=== PATIENT | female | born 1990 | race Caucasian/White ===

== ENCOUNTER 2017-04-13 19:36 | Inpatient (IN) | payer BC ==
[~2017-04-13] VITALS: Ht 185.4 cm; Wt 85.9 kg
[2017-04-13 19:45] VITALS: BP 129/79; PULSE 103; TEMP 97.9
[2017-04-13 20:30] VITALS: BP 112/66; PULSE 96
[2017-04-13 20:37] LABS: MEAN CELL VOLUME 97 fl (80.0-100.0); MEAN CORPUSCULAR HGB CONC 33 g/dl (33.0-37.0); MEAN PLATELET VOLUME 10.5 fl (7.4-10.4); PLATELET COUNT 165 K/mm3 (130-400); RED BLOOD COUNT 3.68 M/mm3 (4.10-5.30); REDCELL DISTRIBUTION WIDTH-CV 13.7 % (11.5-14.5)
[2017-04-13 20:39] LABS: HEMATOCRIT 35.6 % (37.0-47.0); HEMOGLOBIN 11.9 g/dl (12.5-16.0); MEAN CORPUSCULAR HEMOGLOBIN 32 pg (27.0-31.0)
[2017-04-13 20:44] VITALS: BP 112/59; PULSE 98; TEMP 98.1
[2017-04-13] MEDS ORDERED: PRENATAL MVI (20:48)
[2017-04-13 21:00] VITALS: BP 125/58; PULSE 107; TEMP 98.4
[2017-04-13 21:11] LABS: BAND 19 % (0-10); LYMPHOCYTE 8 % (20.0-51.0); METAMYELOCYTE 1 % (0-0); NEUTROPHILS 66 % (42.0-75.2); PLATELET ESTIMATE NORMAL (NORMAL)
[2017-04-13 22:00] VITALS: BP 126/63; PULSE 94
[2017-04-13 22:30] VITALS: BP 116/63; PULSE 85
[2017-04-14] VITALS (43 sets, daily range): BP systolic 96–128; BP diastolic 51–75; PULSE 72–126; TEMP 97.4–99.4
[2017-04-14] MEDS ORDERED: PERCOCET 325 MG1 TA2 PO (08:42)
[2017-04-14] MEDS ORDERED: MOTRIN 800800 MG/TAB PO (08:42)
[2017-04-15 01:15] VITALS: BP 92/56; PULSE 91; TEMP 97.4
[2017-04-15 08:30] VITALS: BP 106/65; PULSE 87; TEMP 97.5
[2017-04-15 16:10] VITALS: BP 98/55; PULSE 84; TEMP 98.6
[2017-04-15 21:00] VITALS: BP 110/72; PULSE 79; TEMP 98.1
[2017-04-16 09:00] VITALS: BP 115/70; PULSE 92; TEMP 97.8
== END 2017-04-16 11:10 | disposition home or self-care (01) | DRG 775 ==
LOC: LDRO 19:36 → LDR 19:50 → OB 19:50
PROVIDERS: Obstetrics & Gynecology
PROC: 10E0XZZ Delivery of Products of Conception, External Approach (ICD-10-PCS; principal; 2017-04-14)
PROC: 0KQM0ZZ Repair Perineum Muscle, Open Approach (ICD-10-PCS; 2017-04-14)
DX: O69.81X0 Labor and delivery complicated by cord around neck, without compression, not applicable or unspecified (principal); O70.1 Second degree perineal laceration during delivery; Z3A.37 37 weeks gestation of pregnancy; Z37.0 Single live birth
CPT/HCPCS: J2590; J2795; J7120

== ENCOUNTER 2019-11-07 08:48 | Inpatient (IN) | payer BC ==
[~2019-11-07] VITALS: Ht 180.3 cm; Wt 90.0 kg
[2019-11-07] VITALS (15 sets, daily range): BP systolic 105–134; BP diastolic 51–86; PULSE 73–108; TEMP 98–98.5
[~2019-11-07 08:48] MED LIST: MOTRIN 800800 MG/TAB PO; PERCOCET 325 MG1 TA2 PO; PRENATAL MVI
--- NOTE | 2019-11-07 08:50 | NUR ---
Patient arrives ambulatory with spouse with complaints of contractions that started around 0300 today and have intensified. Patient denies ROM or vaginal bleeding, reports normal movement. Changes into gown, EFM explained and placed. 0855- SVE per Sharon Rizo RN with membranes intact. Patient updated on plan of care. Requests epidural if possible. 857- on unit and notified of patient arrival, SVE, history and FHR strip. Orders to admit and patient may have epidural if possible. GBS positive protocol. Physician remains on unit. Yocasta Boston CRNA notified and in transit. 904- IV Started in LW by Sharon Rizo RN, labs obtained and LR infusing. Gaurav infusing, see EMAR. Consents explained and signed. Assessment completed. 912- Yocasta Boston CRNA at bedside. Patient assisted to sit on edge of bed. 918- Single shot via epidural by Yocasta Boston CRNA. Patient tolerates well no adverse reactions noted. See anesthesia record. 921- Patient repositioned WL and updated on plan of care. 924- at bedside. Discussing plan of care, patient agrees to AROM option. SVE per provider , AROM by Dr. Alejandre for small amoutn of clear fluid. SVE unchanged. Pericare given, physician remains on unit
[2019-11-07 09:30] LABS: HEMATOCRIT 40.1 % (37.0-47.0); HEMOGLOBIN 13.8 g/dl (12.5-16.0); MEAN CELL VOLUME 96 fl (80.0-100.0); MEAN CORPUSCULAR HEMOGLOBIN 33 pg (27.0-31.0); MEAN CORPUSCULAR HGB CONC 34 g/dl (33.0-37.0); MEAN PLATELET VOLUME 10.1 fl (7.4-10.4); PLATELET COUNT 165 K/mm3 (130-400); RED BLOOD COUNT 4.17 M/mm3 (4.10-5.30); REDCELL DISTRIBUTION WIDTH-CV 13.9 % (11.5-14.5)
--- NOTE | 2019-11-07 09:59 | NUR ---
0959- at bedside. SVE 102. Patient prepped for delivery. Nursery RN to bedside. Assisted to footplates. 1005- Patient begins pushing with contractions with physician at bedside. Moves vertex well. 1006- of viable female infant attended by Dr. Alejandre. to mothers abdomen, care of to Alexi Arriola RN. Apgars 9//9. 1013- Spont. delivery of placenta. Pitocin bolus infusing at 333ml/hr/protocol. Fundus firm at umbilicus. First degree perineal laceration repaied by physician. Patient toelrates well. Vaginal bleeding WNL. Pericare given and ice pack applied. Patient updated on plan of care and safety.
[2019-11-07 11:09] LABS: BAND 30 % (0-10); LYMPHOCYTE 13 % (20.0-51.0); NEUTROPHILS 51 % (42.0-75.2); PLATELET ESTIMATE NORMAL (NORMAL)
--- NOTE | 2019-11-07 11:21 | NUR ---
Patient explained and offered COVID-19 test. Patient refuses.
[2019-11-07] MEDS ORDERED: MOTRIN 800800 MG/TAB PO (21:03)
[2019-11-08 00:34] VITALS: BP 95/62; PULSE 77; TEMP 97.8
[2019-11-08 05:10] VITALS: BP 113/76; PULSE 79; TEMP 97.8
--- NOTE | 2019-11-08 06:39 | NUR ---
REPORT RECEIVED FROM OFF GOING RN, DOROTA Foster CARE TAKEN OVER BY THIS RN.
[2019-11-08 07:02] VITALS: BP 120/63; PULSE 80; TEMP 98.2
[2019-11-08 09:01] VITALS: BP 107/68; PULSE 89; TEMP 97.9
--- NOTE | 2019-11-08 09:01 | NUR ---
Initial visit; Parents thanked [employer] for offering congratulations and God's blessings for the of their son. Senior [employer] Developer thanked family for choosing [facility].
[2019-11-08 17:19] VITALS: BP 115/72; PULSE 77; TEMP 98
[2019-11-08 20:40] VITALS: BP 116/66; PULSE 77; TEMP 98.3
[2019-11-09 09:36] VITALS: BP 119/76; PULSE 94
== END 2019-11-09 09:50 | disposition home or self-care (01) | DRG 807 ==
LOC: LDRO 08:48 → LDR 09:00 → OB 15:05
PROVIDERS: Obstetrics & Gynecology; ADMIT Obstetrics & Gynecology
PROC: 10E0XZZ Delivery of Products of Conception, External Approach (ICD-10-PCS; principal; 2019-11-07)
PROC: 0HQ9XZZ Repair Perineum Skin, External Approach (ICD-10-PCS; 2019-11-07)
DX: O99.824 Streptococcus B carrier state complicating childbirth (principal); Z37.0 Single live birth; O70.0 First degree perineal laceration during delivery; Z3A.39 39 weeks gestation of pregnancy
CPT/HCPCS: J2400; J2540; J2590; J7120